=== PATIENT | male | born 1980 | race Caucasian/White ===

== ENCOUNTER 2019-05-13 11:24 | Emergency (ER) | payer SELFPAY ==
[~2019-05-13] VITALS: Ht 165.1 cm; Wt 101.2 kg
[2019-05-13 12:12] VITALS: BP 129/87
== END 2019-05-13 19:14 | disposition left against medical advice (07) ==
LOC: ER 11:24
DX: R11.10 Vomiting, unspecified (principal); R19.7 Diarrhea, unspecified; Z53.21 Procedure and treatment not carried out due to patient leaving prior to being seen by health care provider